=== PATIENT | male | born 1995 | race Caucasian/White ===

== ENCOUNTER 2017-04-17 10:32 | Emergency (ER) | payer OTHER ==
[~2017-04-17] VITALS: Ht 182.9 cm; Wt 102.6 kg
[2017-04-17 10:34] VITALS: BP 169/91
[2017-04-17] MEDS ORDERED: DIPH,PERTUSS(ACELL),TET VAC/PF 0.5 ML IM-VACC ONE ×2 (11:00→11:02)
[2017-04-17] MEDS ORDERED: LIDOCAINE 1%, 20ML INFIL ONE (11:00)
[2017-04-17] MEDS ORDERED: PLEASE ENTER ALLERGIES MC SCH ×2 (11:30)
[2017-04-17] MEDS ORDERED: CEFAZOLIN 1,000 MG ONE (11:39)
[2017-04-17] MEDS ORDERED: CEFAZOLIN 1,000 MG IM ONE (12:00)
[2017-04-17] MEDS ORDERED: LIDOCAINE 1%, 20ML ONE (12:13)
[2017-04-17] MEDS ORDERED: BACITRACIN ZINC OINT 500U/GM, 0.9 GM ONE (12:22)
== END 2017-04-17 12:53 | disposition home or self-care (01) ==
LOC: ED 12:40
DX: S81.021A Laceration with foreign body, right knee, initial encounter (principal); W01.0XXA Fall on same level from slipping, tripping and stumbling without subsequent striking against object, initial encounter; Y93.01 Activity, walking, marching and hiking; Y92.410 Unspecified street and highway as the place of occurrence of the external cause; Y99.9 Unspecified external cause status
CPT/HCPCS: 12001; 73564; 90471; 90715; 96372; 99284; J0690; J3490